=== PATIENT | male | born 1995 | race Caucasian/White ===

== ENCOUNTER 2017-03-24 03:01 | Emergency (ER) | payer MEDICAID, OTHER ==
[~2017-03-24] VITALS: Ht 170.2 cm; Wt 90.0 kg
[2017-03-24 03:03] VITALS: BP 187/120; PULSE 85; RESP 20; TEMP 97.9; O2SAT 97
[2017-03-24 03:24] VITALS: BP 142/95; PULSE 86; RESP 18; O2SAT 98
[2017-03-24] MEDS ORDERED: LISI-519 PO (03:25)
--- NOTE | 2017-03-24 03:51 | PD ---
HPI Chief Complaint: Abdominal Pain Time Seen by Provider: 03:47 Travel History International Travel<30 days: No Contact w/Intl Traveler<30days: No Traveled to known affect area: No History of Present Illness HPI 21-year-old male presents to the emergency department by private transportation for complaint of severe right-sided flank pain radiating into the right lower quadrant pain causing testicular pain. Patient states no nausea no vomiting. No dysuria frequency urgency or hematuria. No prior history of similar symptoms. Symptoms began suddenly approximately an hour and a half prior to arrival to the emergency department. Patient has taken 800 mg of ibuprofen prior to arrival to the emergency department without relief. Patient denies history of kidney stones. No report of gradual and progressively worsening right lower quadrant abdominal pain nausea vomiting anorexia or fever. Patient' s had no abdominal surgery. Patient takes no medications on a routine basis. Patient had ibuprofen left over from a dental complaint. PFSH Past Medical History Narrative Medical HTN negative surgical history occasional alcohol use nursing notes reviewed Medical History: Denies Significant Hx Diminished Hearing: No Immunizations Current: Yes Past Surgical History Surgical History: No Previous Surgery Social History Alcohol Use: Yes (OCCASSIONALLY) Tobacco Use: No Substance Use: No Allergies-Medications (Allergen,Severity, Reaction): Coded Allergies: No Known Allergies (Verified Adverse Reaction, Unknown, 03/24/17) Reported Meds & Prescriptions Reported Meds & Active Scripts Active Reported Lisinopril 5 Mg Tab 5 Mg PO DAILY Review of Systems Except as stated in HPI: all other systems reviewed are Neg General / Constitutional: No: Fever, Chills HENT: No: Congestion Cardiovascular: No: Chest Pain or Discomfort Respiratory: No: Shortness of Breath Gastrointestinal: Positive: Abdominal Pain, No: Nausea, Vomiting Genitourinary: Positive: Flank Pain, No: Hematuria Musculoskeletal: No: Myalgias, Arthralgias Skin: No Rash Neurologic: No: Weakness Psychiatric: No: Anxiety Hematologic/Lymphatic: No: Lymph Node Enlargement Physical Exam Narrative GENERAL: Well-developed well-nourished male in obvious discomfort no respiratory distress SKIN: Warm and dry. HEAD: Normocephalic. EYES: No scleral icterus. No injection or drainage. NECK: Supple, trachea midline. No JVD or lymphadenopathy. CARDIOVASCULAR: Regular rate and rhythm without murmurs, gallops, or rubs. RESPIRATORY: Breath sounds equal bilaterally. No accessory muscle use. GASTROINTESTINAL: Abdomen soft, non-tender, nondistended. No guarding no rebound. MUSCULOSKELETAL: No cyanosis, or edema. BACK: Nontender without obvious deformity. No CVA tenderness. Data Data Last Documented VS Vital Signs Date Time Temp Pulse Resp B/P (MAP) Pulse Ox O2 Delivery O2 Flow Rate FiO2 03/24/17 04:40 66 16 133/82 (99) 98 Room Air 03/24/17 03:03 97.9 Orders Orders Complete Blood Count With Diff (03/24/17 03:31) Comprehensive Metabolic Panel (03/24/17 03:31) Urinalysis - C+S If Indicated (03/24/17 03:31) Iv Access Insert/Monitor (03/24/17 03:31) Oxygen Administration (03/24/17 03:31) Oximetry (03/24/17 03:31) Lipase (03/24/17 03:31) Ct Abd/Pel W/O Iv Contrast (03/24/17 ) Ondansetron Inj (Zofran Inj) (03/24/17 04:00) Morphine Inj (Morphine Inj) (03/24/17 04:00) Sodium Chlor 0.9% 1000 Ml Inj (Ns 1000 M (03/24/17 04:00) Tamsulosin (Flomax) (03/24/17 04:45) Ed Discharge Order (03/24/17 04:49) Labs Laboratory Tests Test 03/24/17 03:00 03/24/17 03:25 Urine Color YELLOW Urine Turbidity CLEAR Urine pH 6.0 Urine Specific [place] 1.039 Urine Protein 30 mg/dL Urine Glucose (UA) NEG mg/dL Urine Ketones TRACE mg/dL Urine Occult Blood MOD Urine Nitrite NEG Urine Bilirubin NEG Urine Urobilinogen 2.0 MG/DL Urine Leukocyte Esterase NEG Urine RBC 13 /hpf Urine WBC 1 /hpf Urine Mucus MANY /lpf Microscopic Urinalysis Comment CULT NOT INDICATED White Blood Count 12.3 TH/MM3 Red Blood Count 5.59 MIL/MM3 Hemoglobin 16.4 GM/DL Hematocrit 48.2 % Mean Corpuscular Volume 86.3 FL Mean Corpuscular Hemoglobin 29.3 PG Mean Corpuscular Hemoglobin Concent 33.9 % Red Cell Distribution Width 13.5 % Platelet Count 307 TH/MM3 Mean Platelet Volume 8.1 FL Neutrophils (%) (Auto) 69.6 % Lymphocytes (%) (Auto) 23.2 % Monocytes (%) (Auto) 6.5 % Eosinophils (%) (Auto) 0.3 % Basophils (%) (Auto) 0.4 % Neutrophils # (Auto) 8.6 TH/MM3 Lymphocytes # (Auto) 2.9 TH/MM3 Monocytes # (Auto) 0.8 TH/MM3 Eosinophils # (Auto) 0.0 TH/MM3 Basophils # (Auto) 0.0 TH/MM3 CBC Comment DIFF FINAL Differential Comment Blood Urea Nitrogen 9 MG/DL Creatinine 1.01 MG/DL Random Glucose 108 MG/DL Total Protein 8.3 GM/DL Albumin 4.6 GM/DL Calcium Level 9.3 MG/DL Alkaline Phosphatase 84 U/L Aspartate Amino Transf (AST/SGOT) 15 U/L Alanine Aminotransferase (ALT/SGPT) 46 U/L Total Bilirubin 0.4 MG/DL Sodium Level 139 MEQ/L Potassium Level 3.5 MEQ/L Chloride Level 105 MEQ/L Carbon Dioxide Level 25.5 MEQ/L Anion Gap 9 MEQ/L Estimat Glomerular Filtration Rate 93 ML/MIN Lipase 101 U/L [facility] Medical Decision Making Medical Screen Exam Complete: Yes Emergency Medical Condition: Yes Medical Record Reviewed: Yes Interpretation(s) UA: RBCs occult blood elevated specific gravity 1.039; culture not indicated Last Impressions Abdomen/Pelvis CT 03/24/17 0000 Signed Impressions: Service Date/Time: Friday, March 24, 2017 03:52 - CONCLUSION: 2-3 mm right ureterovesical junction calculus with moderate right hydroureter and mild right hydronephrosis. Punctate bilateral renal calculi. Sunny Clarke MD CBC & BMP Diagram 03/24/17 03:25 Total Protein 8.3 H, Albumin 4.6, Calcium Level 9.3, Alkaline Phosphatase 84, Aspartate Amino Transf (AST/SGOT) 15, Alanine Aminotransferase (ALT/SGPT) 46, Total Bilirubin 0.4 Vital Signs Date Time Temp Pulse Resp B/P (MAP) Pulse Ox O2 Delivery O2 Flow Rate FiO2 03/24/17 04:40 66 16 133/82 (99) 98 Room Air 03/24/17 03:24 86 18 142/95 (111) 98 Room Air 03/24/17 03:03 97.9 85 20 187/120 (142) 97 Room Air Differential Diagnosis Abdominal pain, renal colic, UTI, intestinal colic, epididymoorchitis, atypical appendicitis Narrative Course IV access obtained specimens collected and sent for resulting patient kept nothing by mouth Toradol [address] kidney stone protocol ordered At 4:50 AM patient is clinically improved pain is essentially resolved states much better patient aware of imaging results shows a 2-3 mm stone at the right UVJ with mild hydronephrosis hydroureter. No evidence of UTI pyelonephritis and patient is otherwise stable for outpatient management. Prescriptions provided. Diagnosis Primary Impression: Ureterolithiasis Referrals: Urologist call for appointment Patient Instructions: General Instructions, Narcotic given in the ED Additional Instructions: Increase fluid hydration Strain urine Follow-up with urologist Take medication as prescribed Return to the emergency department for a concerns or change in condition Med/Other Pt SpecificInfo: Prescription(s) given Scripts Ibuprofen (Ibuprofen) 800 Mg Tab 800 MG PO Q8H Y for PAIN GREATER THAN 5, #12 TAB 0 Refills Prov: Denise Coughlin MD 03/24/17 Ondansetron Odt (Zofran Odt) 4 Mg Tab 4 MG SL Q6HR Y for Nausea/Vomiting, #10 TAB 0 Refills Prov: Denise Coughlin MD 03/24/17 Tamsulosin (Flomax) 0.4 Mg Cap 0.4 MG PO HS for Manage Prostate Problems for 7 Days, #7 CAP 0 Refills Prov: Denise Coughlin MD 03/24/17 Oxycodone-Acetaminophen (Percocet) 5-325 mg Tab 1 TAB PO Q6H Y for PAIN, #10 TAB 0 Refills Prov: Denise Coughlin MD 03/24/17 Disposition: 01 DISCHARGE HOME Condition: Stable Denise Coughlin MD Mar 24, 2017 03:51
[2017-03-24 03:53] LABS: AUTOMATED NEUTROPHIL # 8.6 TH/MM3 (1.8-7.7); BASOPHIL % 0.4 % (0.0-2.0); EOSINOPHIL % 0.3 % (0.0-4.0); HEMATOCRIT 48.2 % (39.0-51.0); HEMOGLOBIN 16.4 GM/DL (13.0-17.0); LYMPH % 23.2 % (9.0-44.0); LYMPHOCYTE # 2.9 TH/MM3 (1.0-4.8); MEAN CELL VOLUME 86.3 FL (80.0-100.0); MEAN CORPUSCULAR HEMOGLOBIN 29.3 PG (27.0-34.0); MEAN CORPUSCULAR HGB CONC 33.9 % (32.0-36.0); MEAN PLATELET VOLUME 8.1 FL (7.0-11.0); MONO % 6.5 % (0.0-8.0); MONOCYTE # 0.8 TH/MM3 (0-0.9); NEUT % 69.6 % (16.0-70.0); PLATELET COUNT 307 TH/MM3 (150-450); RED BLOOD COUNT 5.59 MIL/MM3 (4.50-5.90); RED CELL DISTRIBUTION WIDTH 13.5 % (11.6-17.2); WHITE BLOOD COUNT 12.3 TH/MM3 (4.0-11.0)
[2017-03-24 03:59] LABS: BILIRUBIN, URINE NEG (NEG); BLOOD, URINE MOD (NEG); GLUCOSE,URINE NEG (NEG); KETONE, URINE TRACE mg/dL (NEG); MUCUS URINE MANY /lpf (OCC); NITRITE,URINE NEG (NEG); URINE COLOR YELLOW (YELLW/STRAW); URINE LEUKOCYTE ESTERASE NEG (NEG)
[2017-03-24] MEDS ORDERED: ONDANSETRON HCL 4 MG/2 ML VIAL IV PUSH ONE (04:00)
[2017-03-24] MEDS ORDERED: MORPHINE SULFATE 4 MG/ML INJ IV PUSH ONE (04:00)
[2017-03-24] MEDS ORDERED: SODIUM CHLOR 0.9% 1000 ML INJ 1,000 ML IV ONE (04:00)
[2017-03-24 04:21] LABS: ALBUMIN 4.6 GM/DL (3.4-5.0); ALT (GPT) 46 U/L (12-78); AST (GOT) 15 U/L (15-37); BICARBONATE 25.5 MEQ/L (21.0-32.0); BLOOD UREA NITROGEN 9 MG/DL (7-18); CALCIUM 9.3 MG/DL (8.5-10.1); CHLORIDE 105 MEQ/L (98-107); CREATININE 1.01 MG/DL (0.60-1.30); GLOMERULAR FILTRATION RATE 93 ML/MIN (>89); GLUCOSE,RANDOM 108 MG/DL (74-106); LIPASE 101 U/L (73-393); SODIUM (NA) 139 MEQ/L (136-145)
[2017-03-24 04:23] LABS: ALKALINE PHOSPHATASE 84 U/L (45-117); TOTAL BILIRUBIN ADULT 0.4 MG/DL (0.2-1.0); TOTAL PROTEIN 8.3 GM/DL (6.4-8.2)
--- NOTE | 2017-03-24 04:27 | RADRPT ---
EXAM DATE/TIME: 03/24/2017 03:52 [facility] COMPARISON: No previous studies available for comparison. INDICATIONS : Right lower flank pain , evaluate for renal stone ORAL CONTRAST: No oral contrast ingested. RADIATION DOSE: 15.74 CTDIvol (mGy) MEDICAL HISTORY : None SURGICAL HISTORY : None. ENCOUNTER: Initial ACUITY: 1 day PAIN SCALE: 8/10 LOCATION: Right flank TECHNIQUE: Volumetric scanning of the abdomen and pelvis was performed. Using automated exposure control and ad justment of the mA and/or kV according to patient size, radiation dose was kept as low as reasonably achievable to obtain optimal diagnostic quality images. DICOM format image data is available electro nically for review and comparison. FINDINGS: LOWER LUNGS: The visualized lower lungs are clear. LIVER: Homogeneous density without lesion. There is no dilation of the biliary tree. No calcified gallston es. SPLEEN: Normal size without lesion. PANCREAS: Within normal limits. KIDNEYS: 2-3 mm calculus at the right ureterovesical junction. Moderate diffuse right hydroureter. Mild right hydronephrosis. 2 mm calculus in the midpole of the right kidney. 1 to 2 mm calculus in the upper ab e of the left kidney. No evidence of hydronephrosis or ureteral calculus on the left. ADRENAL GLANDS: Within normal limits. VASCULAR: There is no aortic aneurysm. BOWEL/MESENTERY: Scattered colonic diverticula. No evidence of acute diverticulitis. No free air or free fluid. ABDOMINAL WALL: Within normal limits. RETROPERITONEUM: There is no lymphadenopathy. BLADDER: No wall thickening or mass. REPRODUCTIVE: Within normal limits. INGUINAL: There is no lymphadenopathy or hernia. MUSCULOSKELETAL: Within normal limits for patient age. CONCLUSION: 2-3 mm right ureterovesical junction calculus with moderate right hydroureter and mild right hydronep hrosis. Punctate bilateral renal calculi. Sunny Clarke MD on March 24, 2017 at 4:20 Board Certified Radiologist. This report was verified electronically.
[2017-03-24 04:40] VITALS: BP 133/82; PULSE 66; RESP 16; O2SAT 98
[2017-03-24] MEDS ORDERED: TAMSULOSIN HCL 0.4 MG CAP PO ONE (04:45)
[2017-03-24] MEDS ORDERED: IBUP1TAB7 PO (04:51)
[2017-03-24] MEDS ORDERED: TAMS5CAP PO (04:51)
[2017-03-24] MEDS ORDERED: PERC5TAB12 PO (04:51)
[2017-03-24] MEDS ORDERED: ZOFR4TAB3 SL (04:51)
== END 2017-03-24 05:11 | disposition home or self-care (01) ==
LOC: NEPC 03:01
DX: N13.2 Hydronephrosis with renal and ureteral calculous obstruction (principal); I10 Essential (primary) hypertension
CPT/HCPCS: 74176; 80053; 81001; 83690; 85025; 96361; 96374; 96375; 99285; J2270; J2405; J7030